=== PATIENT | male | born 1970 | race Caucasian/White ===

== ENCOUNTER 2016-12-05 14:18 | Emergency (ER) | payer OTHER ==
[~2016-12-05] VITALS: Ht 180.3 cm; Wt 109.1 kg
[~2016-12-05 14:18] MED LIST: LEVAQUIN 750MG750 MG PO; NO HOME MEDICATIONS
[2016-12-05 14:20] VITALS: TEMP 98.1
[2016-12-05] MEDS ORDERED: TIAZAC300 MG PO (14:33)
[2016-12-05] MEDS ORDERED: ASPIRIN 81M81 MG/TA2 PO (14:35)
[2016-12-05 15:04] LABS: BASO # 0.1 (0.0-0.2); BASO % 0.5 % (0.0-2.0); EOS # 0.1 (0.0-0.7); EOS % 1.2 % (0-4.0); GRAN # 7.3 (1.4-6.5); GRAN % 67.7 % (42.2-75.2); HEMATOCRIT 42.7 % (42.0-52.0); HEMOGLOBIN 14.5 g/dl (13.5-18.0); LYMPH # 2.7 (1.2-3.4); LYMPH % 25.2 % (20.0-51.0); MEAN CELL VOLUME 90 fl (80.0-100.0); MEAN CORPUSCULAR HEMOGLOBIN 30 pg (27.0-31.0); MEAN CORPUSCULAR HGB CONC 34 g/dl (33.0-37.0); MONO # 0.5 (0.1-0.6); PLATELET COUNT 274 K/mm3 (130-400); RED BLOOD COUNT 4.77 M/mm3 (4.20-5.60); REDCELL DISTRIBUTION WIDTH-CV 13.2 % (11.5-14.5); WHITE BLOOD COUNT 10.7 K/mm3 (4.8-10.8)
[2016-12-05 15:32] LABS: ADJUSTED CALCIUM 8.9 mg/dL (8.4-10.2); ALANINE AMINOTRANSFERASE 45 U/L (21-72); ALBUMIN 4.6 gm/dL (3.5-5.0); ALKALINE PHOSPHATASE 71 U/L (50-136); ANION GAP 15 mmol/L (7-16); BILIRUBIN,TOTAL 0.8 mg/dL (0.0-1.0); BLOOD UREA NITROGEN 17 mg/dL (9-20); CALCIUM 9.4 mg/dL (8.4-10.2); CARBON DIOXIDE 22 mmol/L (22-30); CHLORIDE 103 mmol/L (98-107); CREATINE KINASE 89 U/L (55-170); CREATININE, serum 0.85 mg/dL (0.66-1.25); GLUCOSE 88 mg/dL (74-106); MAGNESIUM 2.1 mg/dL (1.6-2.3); POTASSIUM 3.9 mmol/L (3.4-5.0); SODIUM 139 mmol/L (137-145); TOTAL PROTEIN 7.9 gm/dL (6.4-8.2)
[2016-12-05 15:48] LABS: TROPONIN-I < 0.012 ng/mL (0.000-0.034)
[2016-12-05] MEDS ORDERED: LOPRESSOR 225 MG/TAB PO (15:58)
[2016-12-05 16:04] VITALS: BP 133/87; PULSE 65
== END 2016-12-05 16:29 | disposition home or self-care (01) ==
LOC: COL.ER 14:18
PROVIDERS: Emergency Medicine
DX: R00.2 Palpitations (principal); I49.3 Ventricular premature depolarization
CPT/HCPCS: J7030

== ENCOUNTER → 2020-02-05 | Outpatient (CLI) | payer OTHER ==
[~2020-02-05] MED LIST changes: +ASPIRIN 81M81 MG/TA2 PO; +LOPRESSOR 225 MG/TAB PO; +TIAZAC300 MG PO
== END ==
LOC: COL.RAD 14:21
DX: M65.872 Other synovitis and tenosynovitis, left ankle and foot (principal); M25.475 Effusion, left foot
CPT/HCPCS: A9585

== ENCOUNTER 2024-03-27 07:02 | Emergency (ER) | payer OTHER ==
[~2024-03-27] VITALS: Ht 180.3 cm; Wt 111.8 kg
[2024-03-27] MEDS ORDERED: LIPITOR 10MG10 MG PO (07:29)
[2024-03-27] MEDS ORDERED: COREG 3.123.125 MG/T PO (07:29)
[2024-03-27] MEDS ORDERED: NS 1,000 ML IV ONE ×2 (07:30→09:00)
[2024-03-27] MEDS ORDERED: PRILOSEC 20MG20 MG PO (07:30)
[2024-03-27 07:37] LABS: BASO # 0.1 K/mm3 (0.0-0.2); BASO % 0.7 % (0.0-2.0); EOS # 0.2 K/mm3 (0.0-0.7); EOS % 2.4 % (0.0-4.0); GRAN # 5.5 K/mm3 (1.4-6.5); GRAN % 65.2 % (42.2-75.2); HEMATOCRIT 40.7 % (42.0-52.0); HEMOGLOBIN 13.4 g/dl (13.5-18.0); LYMPH # 2.2 K/mm3 (1.2-3.4); LYMPH % 25.7 % (20.0-51.0); MEAN CELL VOLUME 92 fl (80.0-100.0); MEAN CORPUSCULAR HEMOGLOBIN 30 pg (27-31); MEAN CORPUSCULAR HGB CONC 33 g/dl (33.0-37.0); MEAN PLATELET VOLUME 10.8 fl (7.4-10.4); MONO # 0.5 K/mm3 (0.1-0.6); MONO % 5.6 % (1.7-9.3); PLATELET COUNT 210 K/mm3 (130-400); RED BLOOD COUNT 4.43 M/mm3 (4.20-5.60); REDCELL DISTRIBUTION WIDTH-CV 13.1 % (11.5-14.5)
[2024-03-27 07:52] LABS: ALANINE AMINOTRANSFERASE 29 U/L (0-55); ALBUMIN 3.8 g/dL (3.5-5.0); ALKALINE PHOSPHATASE 71 U/L (40-150); ANION GAP 11 mmol/L (7-16); AST,SGOT 21 U/L (5-34); BILIRUBIN,TOTAL 0.4 mg/dL (0.2-1.2); BLOOD UREA NITROGEN 18 mg/dL (8-26); CHLORIDE 111 mEq/L (98-107); CREATININE, serum 0.95 mg/dL (0.72-1.25); GLUCOSE 134 mg/dL (70-99); SODIUM 140 mEq/L (136-145)
[2024-03-27 08:02] LABS: TROPONIN-I < 0.010 ng/mL (0.00-0.033)
[2024-03-27 09:45] VITALS: BP 149/92; PULSE 56; TEMP 97.9
== END 2024-03-27 09:45 | disposition home or self-care (01) ==
LOC: COL.ER 07:02
PROVIDERS: Personal Emergency Response Attendant
DX: R00.2 Palpitations (principal); E86.0 Dehydration
CPT/HCPCS: J7030